=== PATIENT | male | born 1930 | race Caucasian/White ===

== ENCOUNTER 2018-10-30 14:25 | Inpatient (IN) | payer MEDICARE ==
[~2018-10-30] VITALS: Ht 170.2 cm; Wt 92.1 kg
[~2018-10-30 14:25] MED LIST: A THRU Z SELEC1 EAC6 PO; ADVAIR HFA115 MCG/21 INH; ASPIR 8181 MG; ASPIR 8181 MG PO; CARDURA4 MG PO; CARDURA8 MG PO; CIPRO500 MG PO; CLONIDINE PO; CLONIDINE0.1 PO; COLACE100 MG PO; DUONEB 2.5-0.5 M3 ML INH; FLAGYL500 MG PO; FLOMAX0.4 MG PO; GABAPENTIN 100100 MG PO; HYDROCHLOROTH12.5 M1 PO; HYDROCODONE-AP1 EAC6 PO; IMDUR 30 MG TAB30 M1 PO; LISINOPRIL20 MG PO; LOVASTAT10 PO; MULTIVITAMINS PO; NORVASC10 MG PO; OMEPRAZOLE 20 M20 M1 PO; PREDNISONE 10 M10 M1 PO; PRINZIDE 20-121 EACH PO; PROAIR HFA8.5 GM INH; ROBAXIN 750 MG750 M1 PO; SAW PALMETTO C1 EACH PO; SAW PALMETTO160 MG PO; STIOLTO RESPIMAT4 GM INH; SYNTHROID50 MCG PO; TEARS NATURALE1 EACH OPHTHALMIC; TRAMADOL 50 MG50 MG PO; TYLENOL325 MG PO; VITAMIN C + RO500 MG PO; VITAMINC500 PO; ZESTORETIC 20-1 EAC3 PO
[2018-10-30 15:05] VITALS: BP 96/41
[2018-10-30 16:02] LABS: ABSOLUTE EOSINOPHILS 0.7 thou/uL (0.0-0.7); ABSOLUTE LYMPHOCYTES 1.5 thou/uL (0.8-5.3); ABSOLUTE MONOCYTES 0.8 thou/uL (0.0-1.2); ABSOLUTE NEUTROPHILS 4.7 thou/uL (1.6-8.1); BASOPHILS 0.2 %; EOSINOPHILS 9.5 %; HEMATOCRIT 33.6 % (42.0-52.0); HEMOGLOBIN 11.2 gm/dL (14.0-18.0); LYMPHOCYTES 19.5 %; MCH 28.9 pg (26.0-34.0); MCHC 33.1 g/dL (28.0-37.0); MCV 87.1 fL (80.0-100.0); MONOCYTES 10.3 %; MPV 7.2 fl. (7.2-11.1); NUCLEATED RBCS 0 /100WBC; PLATELET COUNT* 282 thou/uL (150-400); POLYS 60.5 %; RBC 3.86 mil/uL (4.50-6.00); RDW-CV 13.8 % (10.5-14.5); WBC 7.8 thou/uL (4.0-11.0)
[2018-10-30 16:13] LABS: APTT 30.6 Seconds (25.0-31.3); INR 1.1; PROTIME 11.2 Seconds (9.20-11.50)
[2018-10-30 16:18] LABS: CALCIUM 8.8 mg/dL (8.5-10.1); CREATININE 1.1 mg/dL (0.6-1.3); POTASSIUM 4.3 mmol/L (3.5-5.1)
[2018-10-30 16:22] LABS: ALBUMIN 3.4 g/dL (3.4-5.0); MAGNESIUM 1.8 mg/dL (1.8-2.4); TOTAL BILIRUBIN 0.3 mg/dL (<0.1-1.0); TOTAL PROTEIN 5.9 g/dL (6.4-8.2)
[2018-10-30] MEDS ORDERED: MELATONIN3 MG PO (16:34)
[2018-10-30] MEDS ORDERED: SENNA8.6 MG PO (16:36)
[2018-10-30 16:37] LABS: CK-MB MASS 4.9 ng/mL (<0.5-3.6); NT-PRO BRAIN NAT PEPTIDE 681 pg/mL (<300); TROPONIN-I LEVEL <0.06 ng/mL (<0.06)
[2018-10-30] MEDS ORDERED: HYDROCODON-ACE1 EA11 PO (16:38)
[2018-10-30] MEDS ORDERED: LOPRESSOR50 PO (16:39)
[2018-10-30] MEDS ORDERED: VOLTAREN GEL 1100 G1 TOP (16:40)
[2018-10-30] MEDS ORDERED: HYDRALAZINE 2525 MG PO (16:41)
[2018-10-30] MEDS ORDERED: MUCINEX1200 MG PO (16:42)
[2018-10-30] MEDS ORDERED: LASIX 40 MG TAB40 M2 PO (16:43)
[2018-10-30] MEDS ORDERED: POTASSIUM20 PO (16:44)
[2018-10-30 17:09] LABS: BE 2.5 mmol/L (-2 to +3); PCO2 41.9 mmHg (35.0-45.0); PO2 75.1 mmHg (75.0-100.0); pH 7.429 (7.340-7.450)
[2018-10-30 18:18] VITALS: BP 137/66
--- NOTE | 2018-10-30 19:01 | NUR ---
PT DIRECT ADMIT TO ROOM 203 AT APPROXIMATELY 1500 WITH RESPIRATORY DISTRESS AND CHF. ADMISSION ASSESSMENT AND HISTORY COMPLETED. REFER TO CHARTING. PT DAUGHTER AND AT BEDSIDE. PT A&0X4, FORGETFUL AT TIMES. PT TRACING SB/SR ON THE CALL CENTER SUPPORT REPRESENTATIVE. ON 2L NC SAT 96%. WHEEZES NOTED. PT INCONT OF BOWEL AND BLADDER. REDNESS NOTED TO BOTTOM AND ABDOMINAL FOLDS. PICTURES TAKEN AND PLACED IN CHART. PT UP WITH JAYJAY LIFT. PT HAS CERVICAL STENOSIS WITH SEVERE DEBILITY. PT ON 2,000 ML FLUID RESTRICTION. HOME MEDICATIONS RECONCILED AND RESTARTED. REFER TO EMAR. CARDIOLOGY CONSULT IN PLACE. PT IS FROM [facility]. PT HAD CXR TODAY- ATELECTASIS NOTED. NO PNEUMONIA. 40 MG IVP LASIX GIVEN. REFER TO EMAR. MEDICATIONS PER APR. PT REPOSITIONED EVERY 2 HOURS FOR COMFORT. HOURLY ROUNDING OBSERVED. BED IN LOW POSITION. BED ALARM IN PLACE. FALL PRECAUTIONS IN PLACE. CALL LIGHT WITHIN REACH. WILL CONTINUE PLAN OF CARE.
[2018-10-30 20:00] VITALS: BP 158/82
[2018-10-30 23:42] VITALS: BP 131/64
[2018-10-31 04:38] VITALS: BP 145/70
[2018-10-31 05:43] LABS: ANION GAP 7 mmol/L (7-16); BUN 20 mg/dL (7-18); CALCIUM 8.8 mg/dL (8.5-10.1); CHLORIDE 94 mmol/L (98-107); CK-MB MASS 3.7 ng/mL (<0.5-3.6); CO2 31 mmol/L (21-32); CREATININE 1.1 mg/dL (0.6-1.3); GLUCOSE 95 mg/dL (70-99); POTASSIUM 3.4 mmol/L (3.5-5.1); SODIUM 132 mmol/L (136-145); TROPONIN-I LEVEL <0.06 ng/mL (<0.06)
--- NOTE | 2018-10-31 05:59 | NUR ---
PATIENT SLEPT MOST OF THE NIGHT. IV REMAINS SALINE LOCKED. PATIENT WAS MOSTLY INCONTINENT OF URINE BUT DID ASK FOR HELP USING THE URINAL A FEW TIMES. PATIENT DIURESED LARGE AMOUNTS OF URINE SOAKING THE PADS SEVERAL TIMES FROM THE IV LASIX. PATIENT WAS GIVEN PAIN MEDICINE ONCE THIS SHIFT. PATIENT PREFERS HIS BACK BUT DID LET US TURN HIM SOME. WILL CONTINUE TO MONITOR.
[2018-10-31 07:49] VITALS: BP 124/69
[2018-10-31 08:00] VITALS: BP 124/69
[2018-10-31 12:00] VITALS: BP 171/69
--- NOTE | 2018-10-31 12:02 | 2DMMODE ---
[place] [address] 2 D/M-MODE ECHOCARDIOGRAM Name: KIMCHUCK Soto Room: [address] IN [facility]#: [id number] Admission: 10/30/18 Attend Phys: Gustavo Olivera, Discharge: Date of : [birth year] Date of Service: 10/31/18 1202 Report #: [id number] THIS REPORT FOR: //name// APPROVED REPORT Study performed: 10/31/2018 10:20:28 EXAM: Comprehensive 2D, Doppler, and color-flow Echocardiogram Patient Location: In-Patient Room #: [facility] Status: routine BSA: 2.04 HR: 50 bpm BP: 124/69 mmHg Rhythm: NSR Other Information Study Quality: Good Indications Dyspnea 2D Dimensions IVSd: 12.07 (7-11mm) LVOT Diam: 20.08 (18-24mm) LVDd: 45.15 mm PWd: 11.76 (7-11mm) Ascending Ao: 39.37 (22-36mm) LVDs: 24.34 (25-40mm) Aortic Root: 34.23 mm Volumes Left Atrial Volume (Systole) LA ESV Index: 38.00 mL/m2 Aortic Valve AoV Peak Minesh.: 2.17 m/s AO Peak Gr.: 18.83 mmHg LVOT Max P.93 mmHg AO Mean Gr.: 9.90 mmHg LVOT Mean P.57 mmHg LVOT Max V: 1.22 m/s AO V2 VTI: 51.04 cm LVOT Mean V: 0.72 m/s CURLY (VTI): 1.95 cm2 LVOT V1 VTI: 31.40 cm Mitral Valve E/A Ratio: 1.03 MV Decel. Time: 358.04 ms MV E Max Minesh.: 1.36 m/[place] [address] 2 D/M-MODE ECHOCARDIOGRAM Name: CHUCK ALVAREZ Room: [address] IN [facility].#: [id number] Admission: 10/30/18 Attend Phys: Gustavo Olivera, Discharge: Date of : [birth year] Date of Service: 10/31/18 1202 Report #: [id number] MV PHT: 103.83 ms MVA (PHT): 2.12 cm2 TDI E/Lateral E': 12.36 E/Medial E': 15.11 Medial E' Minesh.: 0.09 m/s Lateral E' Minesh.: 0.11 m/s Tricuspid Valve RAP Estimate: 5.00 mmHg TR Peak Gr.: 32.58 mmHg RVSP: 37.00 mmHg PA Pressure: 37.00 mmHg Left Ventricle The left ventricle is normal size. There is normal LV segmental wall motion. There is normal left ventricular wall thickness. Left ventricular systolic function is normal. The left ventricular ejection fraction is within the normal range. LVEF is 60-65%. Grade I - abnormal relaxation pattern. Right Ventricle The right ventricle is normal size. The right ventricular systolic function is normal. Atria Left atrium is mildly dilated. The right atrium size is normal. Aortic Valve Moderate aortic valve sclerosis. No aortic regurgitation is present. Mild aortic stenosis. Mitral Valve There is mitral annular calcification. Trace mitral regurgitation. No evidence of mitral valve stenosis. Tricuspid Valve The tricuspid valve is normal in structure. Mild tricuspid regurgitation. Mild pulmonary hypertension. Pulmonic Valve The pulmonary valve is normal in structure. Trace pulmonic regurgitation. Great Vessels The aortic root is normal in size. IVC [place] [address] 2 D/M-MODE ECHOCARDIOGRAM Name: CHUCK ALVAREZ Room: [address]#: [id number] Admission: 10/30/18 Attend Phys: Gustavo Olivera, Discharge: Date of : [birth year] Date of Service: 10/31/18 1202 Report #: [id number] collapses >50% with inspiration. Pericardium There is no pericardial effusion. <Conclusion> The left ventricle is normal size. There is normal left ventricular wall thickness. Left ventricular systolic function is normal. The left ventricular ejection fraction is within the normal range. LVEF is 60-65%. Grade I - abnormal relaxation pattern. The right ventricle is normal size. Left atrium is mildly dilated. Moderate aortic valve sclerosis. No aortic regurgitation is present. Mild aortic stenosis. There is mitral annular calcification. Trace mitral regurgitation. No evidence of mitral valve stenosis. The tricuspid valve is normal in structure. IVC is normal in size and collapses >50% with inspiration. There is no pericardial effusion. There is normal LV segmental wall motion. <ELECTRONICALLY SIGNED> By: Donis Solis MD, [facility] 10/31/18 120 120 01 Donis Solis MD, FACC /INF
--- NOTE | 2018-10-31 12:21 | NUR ---
ASSUMED CARE OF PT AT 0730. PT RESTING IN BED, PT SLEEPY THIS AM, A&0X4, FORGETFUL. PT TRACING SB ON THE [employer]. ON RA SAT UPPER 90'S. PT INCONT OF BOWEL AND BLADDER. PT UP WITH JAYJAY LIFT. PT REQUIRES ASSIST WITH ALL MEALS- APPETITE GOOD. PT ON 2,000 ML FLUID RESTRICTION. SODIUM BETTER TODAY-REFER TO RESULTS. ORDERS RECEIVED FOR PT AND OT TODAY. PT GOAL FOR TODAY IS GOOD URINE OUTPUT WITH IV LASIX AND COMPLETE ECHO. AM ASSESSMENT CHARTED. MEDICATIONS PER APR. PT REPOSITIONED EVERY 2 HOURS FOR COMFORT. HOURLY ROUNDING OBSERVED. BED IN LOW POSITION. BED ALARM IN PLACE. FALL PRECAUTIONS IN PLACE. CALL LIGHT WITHIN REACH. WILL CONTINUE PLAN OF CARE.
--- NOTE | 2018-10-31 14:36 | NUR ---
Pt asleep, spoke with Pt's dtr via phone. Pt is A&O. SEMINOLE. Resides at [facility] and per dtr, family wants Pt to return at dc, and wants Pt to receive skilled rehab. CM spoke with Joanie, Admissions at [facility], they are able to accept Pt back at dc. Cm faxed initial referral. Pt is total care, requires a alise for transfers and assistance with feeding. Anticipate that Pt will be ready to dc within the next few days, [facility] is able to accept Pt back over the weekend, if weekend dc is needed. Following. Tim p:[phone] f:[phone]
[2018-10-31 16:00] VITALS: BP 152/65
--- NOTE | 2018-10-31 16:15 | NUR ---
NO ACUTE CHANGES THROUGHOUT SHIFT. REFER TO CHARTING. PT WORKED WITH OT TODAY AT THE BEDSIDE-TOLERATED FAIR. PT INCONT OF URINE MULTIPLE TIMES THROUGHOUT SHIFT. PT HAD ECHO TODAY- EF 60-65%. PT TO HAVE REPEAT CXR IN AM. CONTINUES TO TRACE SB/SR ON THE TAX DIRECTOR. ON RA SAT UPPER 90'S. PT COMPLAINED OF NECK AND BACK PAIN THIS AFTERNOON-TREATED WITH PRN HYDROCODONE WITH PARTIAL RELIEF. PT REQUIRES ASSIST WITH ALL MEALS. GOOD APPETITE. SLOWLY PROGRESSING TOWARDS GOALS. MEDICATIONS PER APR. PT REPOSITIONED EVERY 2 HOURS FOR COMFORT. HOURLY ROUNDING OBSERVED. BED IN LOW POSITION. BED ALARM IN PLACE. FALL PRECAUTIONS IN PLACE. CALL LIGHT WITHIN REACH. WILL CONTINUE PLAN OF CARE.
[2018-10-31 20:00] VITALS: BP 146/71
[2018-11-01] VITALS: BP 133/66
[2018-11-01 04:00] VITALS: BP 130/59
--- NOTE | 2018-11-01 04:43 | NUR ---
PT HAS MAINTAINED SAFETY AND RESTED COMFORTABLY T/O NIGHT. PT GIVEN ORAL PAIN MEDICATION AT BEGINNING OF SHIFT AND AT REASSESSMENT PT REPORTED PAIN WAS MANAGED. PT DOES APPEAR TO KNOW WHEN HE HAS TO VOID BUT BY THE TIME URINAL IS RETRIEVED HE HAS ALREADY STARTED.PT ALSO REQUESTED TO SPEAK TO DAUGHTER AT BEGINNING OF SHIFT AND WAS ASSISTED WITH PHONE SYED. NO FURTHER REQUEST. CALL LIGHT WITHIN REACH.
[2018-11-01 05:26] LABS: ANION GAP 7 mmol/L (7-16); BUN 20 mg/dL (7-18); CALCIUM 8.4 mg/dL (8.5-10.1); CHLORIDE 95 mmol/L (98-107); CK-MB MASS 2.3 ng/mL (<0.5-3.6); CO2 31 mmol/L (21-32); CREATININE 1.1 mg/dL (0.6-1.3); GLUCOSE 90 mg/dL (70-99); MAGNESIUM 1.6 mg/dL (1.8-2.4); POTASSIUM 3.6 mmol/L (3.5-5.1); SODIUM 133 mmol/L (136-145); TROPONIN-I LEVEL <0.06 ng/mL (<0.06)
[2018-11-01 08:00] VITALS: BP 130/47
--- NOTE | 2018-11-01 09:34 | NUR ---
Nutrition: Pt assessed for pressure ulcer on buttocks. Admitted with resp distress. H/o COPD, PNA, CAD. Albumin 3.4, BG WNL. On lasix. 2gm Na diet. Wt: 201#. RD ordered Beneprotein packets for added nutrition in wound healing. Pt low to mild risk at this time.
--- NOTE | 2018-11-01 11:29 | NUR ---
WOUND CARE NOTE: ASSESSMENT FOR PRESSURE ULCERS TO BILATERAL BUTTOCKS PATIENT PRESENTS WITH BLANCHABLE REDNESS TO THE SACRAL AREA. ALSO HAS HEALED AREAS TO BILATERAL BUTTOCKS. NO OPEN WOUNDS, BELIEVE HE HAS INCONTINENCE ASSOCIATED DERMATITIES DUE TO FREQUENT URINE INCONTINENCE. RECOMMEND TURN Q2 HOURS FREQUENT CHECKS FOR INCONTINENCE EXTERNAL MALE CATHETER? LIMIT LAYERS OF LINEN UNDER PATIENT LIMIT HOB <30 DEGREES-DIFFICULT FOR PATIENT TO DO DUE TO BACK PAIN BARRIER OINTMENT BID AND PRN.
[2018-11-01 12:00] VITALS: BP 114/58
--- NOTE | 2018-11-01 15:02 | NUR ---
PT VVS, SR TO SB MONITORED ON TELEMETRY. PT HAS BILATERAL UPPER WHEEZES AND DIMINISHED BASES BILATERALLY. PT REQUIRES LIFT TO BE MOVED FROM BED AND REQUIRES TWO TO REPOSITION COMFORTABLY FOR PATIENT. REPORTS PAIN OF 7 BASELINE. A&OX4 WITH SOME CONFUSION. PT INCONTINENT OF BOWEL AND BLADDER. Q2 TURNS, HOURLY ROUNDING PERFORMED. PT IS A TOTAL FEED. 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 POSSESSIONS AND CALL LIGHT WITHIN REACH.
[2018-11-01 16:00] VITALS: BP 176/77
--- NOTE | 2018-11-01 17:53 | EKG ---
[place] [address] ELECTROCARDIOGRAM REPORT Name: CHUCK ALVAREZ Room: [address] ADM IN M.R.#: [id number] Admission: 10/30/18 Attend Phys: Gustavo Olivera MD Discharge: Date of : [birth year] Report #: [id number] THIS REPORT FOR: //name// [facility] Test Date: 2018-10-30 Test Time: 18:42:13 Pat Name: CHUCK ALVAREZ Department: Room: [address] Gender: M [employer]ed [employer] Panels Developer: CLEMENTINA : 1930 Requested By: Gustavo Olivera Order Number: [id number] Reading MD: Ford Singh Measurements Intervals [place] Rate: 65 P: 42 MN: 54 QRS: -35 QRSD: 113 T: QT: 407 QTc: 424 Interpretive Statements Sinus rhythm Short MN interval Probable left atrial enlargement Borderline IVCD with LAD Low voltage, extremity leads Nonspecific T abnormalities, lateral leads Baseline wander in lead(s) V6 No previous ECG available for comparison Electronically Signed On 11-01-2018 17:53:15 CDT by Ford Singh [email or web address] <ELECTRONICALLY SIGNED> By: María Elena Singh MD, [facility] 11/01/18 [id number] María Elena Singh MD, [facility] /EPI
--- NOTE | 2018-11-01 19:41 | NUR ---
THIS RN HAS REVIEWED AND AGREES WITH THE ASSESSMENT AND CHARTING OF STEVE NICOLE.
[2018-11-01 20:00] VITALS: BP 150/73
[2018-11-02] VITALS: BP 152/80
[2018-11-02 04:00] VITALS: BP 171/75
[2018-11-02 04:33] LABS: HEMATOCRIT 30.9 % (42.0-52.0); HEMOGLOBIN 10.5 gm/dL (14.0-18.0); MCH 29.1 pg (26.0-34.0); MCHC 33.8 g/dL (28.0-37.0); MCV 86.2 fL (80.0-100.0); MPV 7.5 fl. (7.2-11.1); RBC 3.59 mil/uL (4.50-6.00); RDW-CV 14.4 % (10.5-14.5); WBC 5.8 thou/uL (4.0-11.0)
[2018-11-02 04:56] LABS: CALCIUM 8.7 mg/dL (8.5-10.1); CREATININE 1.2 mg/dL (0.6-1.3); MAGNESIUM 1.8 mg/dL (1.8-2.4); POTASSIUM 3.7 mmol/L (3.5-5.1); TOTAL BILIRUBIN 0.3 mg/dL (<0.1-1.0); TOTAL PROTEIN 5.5 g/dL (6.4-8.2)
--- NOTE | 2018-11-02 06:53 | NUR ---
PT HAS RESTED T/O NIGHT COMFORTABLY. HAD REQUESTED NORCO X2 FOR PAIN IN NECK AND BACK. PT PAD REMAINED DRY WITH PURE WICK IN PLACE.MAGNESIUM LEVEL THIS AM IS WNP.
[2018-11-02 08:00] VITALS: BP 157/65
[2018-11-02 13:00] VITALS: BP 90/47
[2018-11-02 16:41] VITALS: BP 128/67
--- NOTE | 2018-11-02 18:28 | NUR ---
PT A/O. TELE TRACKING SR/SB AND ALL VSS ON ROOM AIR. DENIES CP, SOA. PT DOES HAVE NON PRODUCTIVE COUGH- ENCOURAGED COUGH/DEEP BREATHING. Q2 TURNS. EDUCATED ON SAFETY AND PLAN OF CARE. PLEASE SEE ASSESSMENT FOR ADDITIONAL INFORMATION. WILL CONT TO MONITOR
[2018-11-03] VITALS: BP 117/60
[2018-11-03 04:00] VITALS: BP 154/85
[2018-11-03 05:51] LABS: CALCIUM 8.8 mg/dL (8.5-10.1); CREATININE 1.2 mg/dL (0.6-1.3)
--- NOTE | 2018-11-03 06:01 | NUR ---
ASSESSMENT CHARTED. VSS. PATIENT REMAINS INCONTINENT. DAUGHTER AT BEDSIDE. PATIENT NOW HAS HEARING AID IN LEFT EAR. COUGHING UP GREED MUCUS. NO SIGNIFICANT CHANGES TO REPORT THIS SHIFT.
[2018-11-03 08:00] VITALS: BP 142/65
[2018-11-03] MEDS ORDERED: HYDROCODON-ACE1 EAC7 PO (11:03)
[2018-11-03 11:30] VITALS: BP 130/80
--- NOTE | 2018-11-03 12:45 | NUR ---
Pt discharging back to [facility] today, Pt will be skilled. Faxed dc orders. Chart copied. Nurse report number is [phone]. Updated Pt's and dtr. Ambulance to pharmacy picking technician and transport around 2pm
--- NOTE | 2018-11-03 14:09 | NUR ---
PT A/O. TELE TRACKING SR 1ST AVB AND ALL VSS ON ROOM AIR. DENIES CP, SOA. UP IN CHAIR WITH WAFFLE CUSHION MOST OF SHITF. FREQUENT WEIGHT SHIFTS PER LIFT. BOTTOM RED AND BLANCHABLE. C/O NECK/BACK PAIN- EDUCATED PER EMAR. PT LOOKING FORWARD TO DC. EDUCATED ON SAFETY AND PLAN OF CARE. PLEASE SEE ASSESSMENT FOR ADDITIONAL INFORMATION. WILL CONT TO MONITOR
== END 2018-11-03 15:00 | DRG 291 ==
LOC: M.2W 14:25
PROVIDERS: Family Medicine; ADMIT Internal Medicine
DX: I11.0 Hypertensive heart disease with heart failure (principal); J96.21 Acute and chronic respiratory failure with hypoxia; J44.1 Chronic obstructive pulmonary disease with (acute) exacerbation; I50.33 Acute on chronic diastolic (congestive) heart failure; I35.0 Nonrheumatic aortic (valve) stenosis; I25.10 Atherosclerotic heart disease of native coronary artery without angina pectoris; E78.00 Pure hypercholesterolemia, unspecified; I48.91 Unspecified atrial fibrillation; M19.90 Unspecified osteoarthritis, unspecified site; G62.9 Polyneuropathy, unspecified; R00.1 Bradycardia, unspecified; T50.905A Adverse effect of unspecified drugs, medicaments and biological substances, initial encounter; I73.9 Peripheral vascular disease, unspecified; M48.02 Spinal stenosis, cervical region; Z66 Do not resuscitate; Z86.73 Personal history of transient ischemic attack (TIA), and cerebral infarction without residual deficits; Z87.891 Personal history of nicotine dependence; Y92.89 Other specified places as the place of occurrence of the external cause; Z88.0 Allergy status to penicillin

== ENCOUNTER 2018-11-22 12:08 | Emergency (ER) | payer MEDICARE ==
[~2018-11-22] VITALS: Ht 167.6 cm; Wt 77.6 kg
[~2018-11-22 12:08] MED LIST changes: +HYDRALAZINE 2525 MG PO; +HYDROCODON-ACE1 EA11 PO; +HYDROCODON-ACE1 EAC7 PO; +LASIX 40 MG TAB40 M2 PO; +LOPRESSOR50 PO; +MELATONIN3 MG PO; +MUCINEX1200 MG PO; +POTASSIUM20 PO; +SENNA8.6 MG PO; +VOLTAREN GEL 1100 G1 TOP
[2018-11-22] MEDS ORDERED: ANORO ELLIPTA1 EACH INH (13:41)
[2018-11-22] MEDS ORDERED: IPRAT-ALBUT 0.5-3 ML INH (13:42)
[2018-11-22] MEDS ORDERED: MUCINEX1200 MG PO (13:42)
[2018-11-22 15:03] VITALS: BP 172/76
[2018-12-21] MEDS ORDERED: GABAPENTIN 100100 MG PO (16:36)
[2018-12-21] MEDS ORDERED: SUPER THERAVIT1 EACH PO (16:36)
[2018-12-21] MEDS ORDERED: ISOSORBIDE MONO30 M1 PO (16:36)
[2018-12-21] MEDS ORDERED: MIRALAX119 GM PO (16:36)
[2018-12-21] MEDS ORDERED: VITAMIN C1000 MG PO (16:36)
[2018-12-21] MEDS ORDERED: ASA81BEC PO (16:36)
[2018-12-21] MEDS ORDERED: COMBIVENT INH (16:37)
[2018-12-21] MEDS ORDERED: ANORO ELLIPTA1 EACH INH (16:37)
[2018-12-21] MEDS ORDERED: FLOMAX0.4 MG PO (16:37)
[2018-12-21] MEDS ORDERED: MUCINEX D ER 11 EACH PO (16:38)
[2018-12-21] MEDS ORDERED: VOLTAREN GEL 1100 G1 TOP (16:38)
[2018-12-21] MEDS ORDERED: SYNTHROID75 MCG PO (16:38)
[2018-12-21] MEDS ORDERED: HYDRALAZINE 5050 MG PO (16:38)
[2018-12-21] MEDS ORDERED: POTASSIUM20 PO (16:39)
[2018-12-21] MEDS ORDERED: MELATONIN3 M1 PO (16:39)
[2018-12-21] MEDS ORDERED: LASIX 40 MG TAB40 MG PO (16:39)
[2018-12-21] MEDS ORDERED: SENNA PLUS TAB1 EACH PO (16:39)
[2018-12-21] MEDS ORDERED: PROAIR HFA8.5 GM INH (16:40)
[2018-12-21] MEDS ORDERED: NORCO 5-325 TA1 EAC1 PO (16:40)
[2018-12-21] MEDS ORDERED: OMEPRAZOLE MAGN20 MG PO (16:40)
[2018-12-22] MEDS ORDERED: VITAMIN C1000 MG PO (01:58)
[2018-12-22] MEDS ORDERED: ASA81BEC PO (01:58)
[2018-12-22] MEDS ORDERED: ISOSORBIDE MONO30 M1 PO (02:00)
[2018-12-22] MEDS ORDERED: ANORO ELLIPTA1 EACH INH (02:04)
[2018-12-22] MEDS ORDERED: POTASSIUM20 PO (02:06)
[2018-12-22] MEDS ORDERED: FUROSEMIDE 40 M40 MG PO (02:08)
[2018-12-22] MEDS ORDERED: PROAIR HFA8.5 GM INH (02:10)
[2018-12-22] MEDS ORDERED: IPRAT-ALBUT 0.5-3 ML INH (02:12)
[2018-12-22] MEDS ORDERED: REFRESH CLASSI1 EACH OPHTHALMIC (02:13)
[2018-12-22] MEDS ORDERED: MUCINEX1200 MG PO (02:15)
[2018-12-22] MEDS ORDERED: VOLTAREN GEL 1100 G1 TOP (02:19)
[2018-12-22] MEDS ORDERED: NORCO 5-325 TA1 EAC1 PO (02:20)
[2018-12-22] MEDS ORDERED: HYDRALAZINE 5050 MG PO (02:22)
[2018-12-26] MEDS ORDERED: ACETAMINOPHEN325 M1 PO (11:46)
[2018-12-26] MEDS ORDERED: DOXYCYCLINE HYC50 MG PO (11:46)
[2018-12-26] MEDS ORDERED: IMDUR 30 MG TAB30 M1 PO (11:46)
[2018-12-26] MEDS ORDERED: NORCO 5-325 TA1 EAC1 PO (11:46)
[2018-12-28] MEDS ORDERED: FLOMAX0.4 MG PO (12:31)
== END 2018-11-22 15:05 ==
LOC: M.ERS 12:08
DX: S16.1XXA Strain of muscle, fascia and tendon at neck level, initial encounter (principal); I10 Essential (primary) hypertension; I48.91 Unspecified atrial fibrillation; J44.9 Chronic obstructive pulmonary disease, unspecified; E78.00 Pure hypercholesterolemia, unspecified; M19.90 Unspecified osteoarthritis, unspecified site; G62.9 Polyneuropathy, unspecified; Z86.73 Personal history of transient ischemic attack (TIA), and cerebral infarction without residual deficits; Z98.890 Other specified postprocedural states; Z88.0 Allergy status to penicillin; Z87.891 Personal history of nicotine dependence; W05.0XXA Fall from non-moving wheelchair, initial encounter; Y92.129 Unspecified place in nursing home as the place of occurrence of the external cause; Y93.89 Activity, other specified; Y99.8 Other external cause status